=== PATIENT | male | born 2000 | race Native Hawaiian/Other Pacific Islander ===

== ENCOUNTER 2020-08-11 16:46 | Emergency (ER) | payer OTHER ==
[~2020-08-11] VITALS: Ht 175.3 cm; Wt 81.6 kg
[2020-08-11 16:53] VITALS: TEMP 98.9
[2020-08-11 18:08] VITALS: BP 132/75
== END 2020-08-11 18:08 | disposition home or self-care (01) ==
LOC: ED 16:46
DX: S16.1XXA Strain of muscle, fascia and tendon at neck level, initial encounter (principal); X50.9XXA Other and unspecified overexertion or strenuous movements or postures, initial encounter; Y92.89 Other specified places as the place of occurrence of the external cause
CPT/HCPCS: 96372; 99283; J1885; J2930